=== PATIENT | male | born 1970 | race Caucasian/White ===

== ENCOUNTER 2021-10-28 02:06 | Day surgery (SDC) | payer OTHER, SELFPAY ==
[2021-10-28] VITALS (21 sets, daily range): BP systolic 117–188; BP diastolic 66–98; PULSE 42–95; RESP 15–24; TEMP 35.8–36.9; O2SAT 92–100; BMI 31.2; BMI 30.8
--- NOTE | 2021-10-28 02:20 | CRLHL7_ITS ---
For Patients: As a result of the Century Cures Act, medical imaging exams and procedure reports are released immediately into your electronic medical record. You may view this report before your referring provider. If you have questions, please contact your health care provider. INDICATION: Right upper quadrant pain. COMPARISON: 08/27/2021 TECHNIQUE: Ultrasound examination of the right upper quadrant was performed. FINDINGS: There is a nonmobile 1.8 centimeter diameter calculus in the neck of the gallbladder. This may be impacted. The gallbladder wall is top normal in thickness at 3 millimeters. A sonographic Randhawa sign is present with pain over the gallbladder during ultrasound examination. This does suggest acute cholecystitis. The common bile duct is mildly increased in caliber at 8 mm, new compared to the previous study where it measured 3 mm. The pancreatic head and body were examined, and these are normal in appearance. The abdominal aorta and IVC cannot be evaluated because of bowel gas. The liver shows no sign of mass or contour abnormality, and there is no sign of ascites. Again seen is increased hepatic echogenicity representing fatty infiltration. The right kidney is unremarkable. IMPRESSION: Findings suggesting acute cholecystitis. Large calculus impacted in the neck of the gallbladder. Positive sonographic Randhawa sign with gallbladder wall top-normal in thickness. New mild biliary ductal dilatation. Cannot exclude distal common bile duct obstruction. Suggest correlation with patient`s LFTs. Again seen is fatty infiltration of the liver. Dictated by Usama Burns MD @ 10/28/2021 3:33:50 AM (Electronically Signed)
[2021-10-28 02:31] LABS: Basophils Absolute Auto 0.04 K/uL (0.00-0.30); Basophils Percent Auto 0.4 % (0.0-3.0); Eosinophils Percent Auto 3.2 % (0.0-7.0); Hematocrit 43.5 % (37.0-53.0); Hemoglobin* 13.7 gm/dL (13.5-17.5); Immature Granulocytes Abs Auto 0.02 K/uL (0.00-0.30); Lymphocytes Absolute Auto 3.15 K/uL (0.90-2.90); Lymphocytes Percent Auto 33.7 % (20-44); Mean Corpuscular HGB Conc 32 gm/dL (32-36); Mean Corpuscular Hemoglobin 24 pg (26-34); Mean Corpuscular Volume 75 fL (80-100); Monocytes Percent Auto 8.5 % (0.0-11.0); Neutrophils Absolute Auto 5.05 K/uL (1.7-7.0); Platelet Count* 396 K/uL (140-440); RDW Coefficient of Variation % 23.8 % (11.5-15.5); Red Blood Count 5.84 m/uL (4.30-5.90); White Blood Count* 9.36 K/uL (4.50-11.00)
[2021-10-28 02:32] LABS: Slide Review Reflex No
[2021-10-28] MEDS: ONDANSETRON 2 MG/ML inj 4 MG IVP (02:32)
[2021-10-28] MEDS: MORPHINE 4 MG/ML INJ IVP (02:32)
[2021-10-28] MEDS: 0.9 % SODIUM CHLORIDE 1000 ml 1,000 ML IV (02:33)
[2021-10-28] MEDS: KETOROLAC 15 MG/ML inj IVP (02:34)
[2021-10-28 02:46] LABS: Albumin* 4.8 g/dL (3.3-5.0); Chloride* 105 mmol/L (96-114); Potassium* 3.6 mmol/L (3.6-5.1); Sodium* 143 mmol/L (135-149)
[2021-10-28 02:48] LABS: Amylase* 91 U/L (18-89); Carbon Dioxide* 22 mmol/L (20-32); Creatinine* 1.5 mg/dL (0.5-1.5); Est. Creatinine Clearance* 63.95; Estimated Glomerular Filt Rate 56 ml/min
[2021-10-28 02:49] LABS: Alkaline Phosphatase* 98 U/L (40-150); Aspartate Amino Transferase* 28 U/L (12-35); Bilirubin Total* 0.4 mg/dL (0.1-1.5); Blood Urea Nitrogen* 20 mg/dL (7-30); Calcium* 9.5 mg/dL (8.4-10.6); Glucose* 126 mg/dL (60-115); Lipase* 142 U/L (23-300); Total Protein* 8.5 g/dL (6.0-8.3)
[2021-10-28 02:50] LABS: Alanine Aminotransferase* 39 U/L (4-50)
--- NOTE | 2021-10-28 02:51 | ED.NURSE ---
Radiology in with patient for ultrasound.
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
[2021-10-28 03:16] LABS: Appearance Urine Clear (Clear); Bilirubin Urine Negative (Negative); Blood Urine Negative (Negative); Color Urine Yellow (Yellow); Glucose Urine Negative (Negative); Ketones Urine Negative (Negative); Leukocyte Esterase Urine Negative (Negative); Nitrite Urine Negative (Negative); Protein Urine Negative (Negative); Urobilinogen Urine 0.2 (0.2-1.0)
[2021-10-28] MEDS: HYDROmorphone 0.5 mg/0.5 ml inj IVP (03:53)
[2021-10-28 04:04] LABS: SARS PCR* Negative SARS-CoV-2 (Negative)
[2021-10-28] MEDS: PANTOPRAZOLE SODIUM 40 MG INJ 80 MG IVP (04:12)
[2021-10-28] MEDS: PIPERACILLIN/TAZOBACTAM 3.375 GM in 0.9 % SODIUM CHLORIDE Mini-bag 100 ML IVPB ×2 (04:58→14:05)
[2021-10-28] MEDS: 5 % DEXTROSE/0.9% SOD CHLORIDE 1,000 ML 125 ML IV (05:01)
--- NOTE | 2021-10-28 05:05 | P.IMPN_ITS ---
Subjective Date Seen: 10/28/21 Interval history: Jeison Momin Hospitalist eHospitalist was contacted with request of consultation on Rhett Brown for help wiht his admission. 51 year old gentleman with no significant PMH who presented to the hospital with severe abd pain, R sided, upper, started suddenly around 11 PM, progressively got worse, with no known exacerbating or relieving factors, radiating to upper back. pain was associated with nausea and vomiting but no fever. he described having some chills with this painful episode. Home medications: see EMR PMH: see EMR PSH: see EMR Social Hx: see EMR exam performed via interactive video with assistence of his bedside nurse; Ericka alert and cooperative, not in acute distress oral muocsa moist, no erythema CTAB, not tachypnic RRR, normal S1 S2+ 0 mild tenderness on RUQ when his nurse palpated, negative Randhawa's sign no LEs edema alert and oriented, no gross focal deficit no rash or lesions labs and imaging reviewed A/P: Cholelithiasis Biliary colic R/O acute cholecystitis no fever, leukocytosis to suggest ongoing infection although the presence of chills is concerning will keep on antibiotics; ceftriaxone and flagyl keep NPO IVF pain control antiemetics initial LFTs and lipase are normal, will trend pt will need to be seen by kemi for consideration for socorro de la fuente Thank you for including Jeison Momin hospitalist in Mr Brown's care. Please let us know if any questions or concerns. Exam Const: Vital Signs, click to edit/add: Vital Signs - 24 hr 10/28/21 02:10 10/28/21 03:10 10/28/21 04:00 Temperature 96.5 F L Pulse Rate [Pulse Oximeter] 67 66 63 Respiratory Rate 24 20 18 Blood Pressure [Ri ght Upper Arm] 188/98 H 173/95 H 145/67 H Pulse Oximetry 99 100 98 Oxygen Delivery Me thod Room Air Room Air Room Air Labs Labs: Laboratory Results - last 24 hr 10/28/21 10/28/21 10/28/21 02:20 02:20 03:00 WBC 9.36 RBC 5.84 Hgb 13.7 Hct 43.5 MCV 75 L MCH 24 L MCHC 32 RDW Coeff of Odin 23.8 H Plt Count 396 Neut % (Auto) 54.0 Lymph % (Auto) 33.7 [place] % (Auto) 8.5 Eos % (Auto) 3.2 Baso % (Auto) 0.4 Neut # (Auto) 5.05 Lymph # (Auto) 3.15 H [place] # (Auto) 0.80 Eos # (Auto) 0.30 Baso # (Auto) 0.04 Abs Immat Gran (auto) 0.02 Sodium 143 Potassium 3.6 Chloride 105 Carbon Dioxide 22 BUN 20 Creatinine 1.5 Estimated Creat Clear 63.95 Estimated GFR 56 Glucose 126 H Calcium 9.5 Total Bilirubin 0.4 AST 28 ALT 39 Alkaline Phosphatase 98 Total Protein 8.5 H Albumin 4.8 Amylase 91 H Lipase 142 Urine Color Yellow Urine Appearance Clear Urine pH 7.0 Ur Specific [place] 1.020 Urine Protein Negative Urine Glucose (UA) Negative Urine Ketones Negative Urine Blood Negative Urine Nitrite Negative Urine Bilirubin Negative Urine Urobilinogen 0.2 Ur Leukocyte Esterase Negative SARS-CoV-2 (PCR) 10/28/21 03:00 WBC RBC Hgb Hct MCV MCH MCHC RDW Coeff of Odin Plt Count Neut % (Auto) Lymph % (Auto) [place] % (Auto) Eos % (Auto) Baso % (Auto) Neut # (Auto) Lymph # (Auto) [place] # (Auto) Eos # (Auto) Baso # (Auto) Abs Immat Gran (auto) Sodium Potassium Chloride Carbon Dioxide BUN Creatinine Estimated Creat Clear Estimated GFR Glucose Calcium Total Bilirubin AST ALT Alkaline Phosphatase Total Protein Albumin Amylase Lipase Urine Color Urine Appearance Urine pH Ur Specific [place] Urine Protein Urine Glucose (UA) Urine Ketones Urine Blood Urine Nitrite Urine Bilirubin Urine Urobilinogen Ur Leukocyte Esterase SARS-CoV-2 (PCR) Negative SARS-CoV-2
--- NOTE | 2021-10-28 05:52 | PC.NURSE ---
Pt. up to floor approx. 0400, pt. alert and oriented x3, pleasant and cooperative. Pt. rates pain 06/03 received meds in ED prior to arrival see emar. Pt. denies N/V at this time resting comfortably in bed. NPO since 192910/27/21 per pt.
[2021-10-28] MEDS: OMEPRAZOLE 20 MG CAPSULE DR 40 MG PO (06:56)
[2021-10-28 07:54] LABS: Chloride* 109 mmol/L (96-114); Potassium* 4.4 mmol/L (3.6-5.1); Sodium* 139 mmol/L (135-149)
[2021-10-28 07:56] LABS: Bilirubin Total* 0.5 mg/dL (0.1-1.5); Creatinine* 1.4 mg/dL (0.5-1.5); Est. Creatinine Clearance* 68.52; Estimated Glomerular Filt Rate 61 ml/min
[2021-10-28 07:57] LABS: Alanine Aminotransferase* 33 U/L (4-50); Alkaline Phosphatase* 79 U/L (40-150); Aspartate Amino Transferase* 26 U/L (12-35); Blood Urea Nitrogen* 18 mg/dL (7-30); Carbon Dioxide* 22 mmol/L (20-32); Glucose* 142 mg/dL (60-115); Lipase* 75 U/L (23-300); Total Protein* 7.3 g/dL (6.0-8.3)
[2021-10-28 07:58] LABS: Calcium* 8.6 mg/dL (8.4-10.6)
[2021-10-28 08:01] LABS: Basophils Absolute Auto 0.03 K/uL (0.00-0.30); Basophils Percent Auto 0.3 % (0.0-3.0); Eosinophils Absolute Auto 0.07 K/uL (0.00-0.50); Eosinophils Percent Auto 0.7 % (0.0-7.0); Hematocrit 39.8 % (37.0-53.0); Hemoglobin* 12.6 gm/dL (13.5-17.5); Immature Granulocytes Abs Auto 0.07 K/uL (0.00-0.30); Immature Reticulocyte Fraction 13.4 % (2.3-13.4); Lymphocytes Percent Auto 17.3 % (20-44); Mean Corpuscular HGB Conc 32 gm/dL (32-36); Mean Corpuscular Hemoglobin 24 pg (26-34); Mean Corpuscular Volume 75 fL (80-100); Platelet Count* 358 K/uL (140-440); RDW Coefficient of Variation % 23.6 % (11.5-15.5); Red Blood Count 5.31 m/uL (4.30-5.90); Reticulocyte Hemoglobin Equivi 27.9 pg (29.0-35.0); Reticulocyte Percent 0.9 % (0.5-2.0); Reticulocytes Absolute 0.05 # (0.03-0.08)
[2021-10-28 08:04] LABS: Slide Review Reflex Yes
[2021-10-28 08:07] LABS: Slide Review Acceptable Review (Acceptable)
[2021-10-28 08:23] LABS: Iron* 36 ug/dL (49-181)
[2021-10-28 08:24] LABS: C Reactive Protein* 0.5 mg/dL (0.5-1.0)
[2021-10-28 08:32] LABS: Percent Iron Saturation 9 % (20-50); Total Iron Binding Capacity 386 ug/dL (261-462)
[2021-10-28] MEDS: ACETAMINOPHEN 325 MG TABLET PO (08:34)
[2021-10-28] MEDS: cefTRIAXone 2 GM in 0.9 % SODIUM CHLORIDE Mini-bag 100 ML IVPB (09:00)
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
[2021-10-28 13:50] LABS: Ferritin* 17.4 ng/mL (17.9-464.0)
[2021-10-28] MEDS: LACTATED RINGERS 1000 ML 1,000 ML 100 ML IV ×2 (13:55→15:12)
--- NOTE | 2021-10-28 16:09 | PM.GSPRC ---
Operative Note Date of procedure: 10/28/21 Type of Procedure: Laparoscopic cholecystectomy Procedure Description: After discussing the risks and benefits of the procedure, the patient signed informed consent.? The operative site was marked and the patient was brought to the operating room and placed on the operating table in supine position.? Care was taken to pad the patient's pressure points.?? The patient was then intubated by anesthesia.?? The operative site was then prepped and draped in the usual sterile fashion.? A time-out was then performed. Entrance to the abdomen was gained via a 5 mm Visiport in the left upper quadrant. The abdomen was insufflated and briefly surveyed for signs of injury. There was none. 11 mm umbilical port was placed as well as 2 working ports along the right costal margin. Patient was then placed in reverse Trendelenburg position with the right side up. The gallbladder fundus was distended and difficult to grasp. A laparoscopic needle was utilized to remove approximately 60 mL of bile and allow the fundus to be grasped and retracted cephalad. A moderate amount of dissection was needed to free omental adhesions from the gallbladder. The infundibulum was grasped. A combination of hook cautery and blunt dissection was used to carefully dissect out the cystic duct and artery until they could clearly be seen entering the gallbladder without any intervening structures. The gallbladder was dissected off the cystic plate to achieve the critical view. Once this was achieved the cystic duct and artery were each clipped with 2 clips proximally and 1 clip distally and transected with the scissors. There was a moderate-sized vein going into the gallbladder. Two clips were applied proximally on this and it was transected distally. The gallbladder was then taken off of the liver bed. And removed from the abdomen using an Endo-Catch bag. The gallbladder bed was surveyed for hemostasis. A small amount of bile which had spilled was suctioned from the abdomen the ports were then removed under direct vision. The umbilical port fascia was closed with 0 Vicryl. The skin was closed with absorbable subcuticular suture. Instrument sponge and needle counts were correct at the end of the case. The patient was then woken and transferred to the PACU in stable condition. ? The patient tolerated the procedure well. Findings: Inflamed gallbladder, consistent with acute cholecystitis. Anesthesia: GETA Surgeon: Laurie Reid MD Estimated blood loss (mL): 25 Condition: stable Disposition: PACU
--- NOTE | 2021-10-28 16:17 | W.ANESCHARGE ---
Anesthesia Charges Start Date/Time Anesthesia Start Date: 10/28/21 Anesthesia Start Time: 13:55 Stop Date/Time Anesthesia Stop Date: 10/28/21 Anesthesia Stop Time: 16:15 Summary Emergency: Yes
--- NOTE | 2021-10-28 16:26 | W.ANESCHARGE ---
Anesthesia Charges Start Date/Time Anesthesia Start Date: 10/28/21 Anesthesia Start Time: 13:55 Stop Date/Time Anesthesia Stop Date: 10/28/21 Anesthesia Stop Time: 16:15 Summary Emergency: Yes
--- NOTE | 2021-10-28 18:53 | PC.NURSE ---
Pt arrived to floor at 1645 - up to void in BR around 1800. no meds given since up to floor. spouse at bedside, d/c meds have already been picked up. pt steady on feet. slightly nauseated so only advanced to water thus far. 4 lap sites intact with glue. pain reported /. Report given to EMILY Hazel.
--- NOTE | 2021-10-28 19:39 | PC.NURSE ---
Discharge: Pt tolerating crackers, Voiding, Afebrile, Reporting zero pain and zero nausea. Ambulated with Spouse to the exit @ 1930
== END 2021-10-28 19:41 | disposition home or self-care (01) ==
LOC: ED 03:15 → MEDSURG 04:24 → SS 09:09 → MEDSURG 12:09
PROVIDERS: Internal Medicine; Student in an Organized Health Care Education/Training Program; Emergency Provider Family Medicine; PCP Family Medicine; Visit Provider Surgery
PROC: 0FT44ZZ Resection of Gallbladder, Percutaneous Endoscopic Approach (ICD-10-PCS; CPT 47562; principal; 2021-10-28 13:00)
DX: K80.12 Calculus of gallbladder with acute and chronic cholecystitis without obstruction (principal); K82.8 Other specified diseases of gallbladder; D50.9 Iron deficiency anemia, unspecified; Z86.718 Personal history of other venous thrombosis and embolism; K76.0 Fatty (change of) liver, not elsewhere classified
CPT/HCPCS: 47562; 00790; 36415; 76705; 80053; 81003; 82150; 82728; 83540; 83550; 83690; 85025; 85045; 86140; 87635; 88304; 93005; 99140; 99284; 99285; A9270; C9113; J0330; J0696; J1100; J1170; J1885; J2270; J2405; J2543; J2704; J2710; J2765; J3010; J7030; J7042; J7120

== ENCOUNTER 2024-09-05 09:24 | Outpatient (CLI) | payer BC, SELFPAY ==
--- NOTE | 2024-09-05 11:58 | W.ANESCHARGE ---
Anesthesia Charges Start Date/Time Anesthesia Start Date: 09/05/24 Anesthesia Start Time: 11:35 Stop Date/Time Anesthesia Stop Date: 09/05/24 Anesthesia Stop Time: 11:56 Coding CPT Codes CPT Codes: ANES LWR INTST SCR COLSC - 05938 ([id number]) P2 - PATIENT W/MILD SYST DISEASE
--- NOTE | 2024-09-05 12:17 | P.ANES_ITS ---
Anesthesia Charges Start Date/Time Anesthesia Start Date: 09/05/24 Anesthesia Start Time: 11:35 Stop Date/Time Anesthesia Stop Date: 09/05/24 Anesthesia Stop Time: 11:56 Coding CPT Codes CPT Codes: RUBI LWR INTST SCR COLSC - 09480 ([id number]) P2 - PATIENT W/MILD SYST DISEASE, QK - BICYCLE RACER 2-4 CNCRNT ANES PROC, QX - INFO PRINT PRESS OPERATOR SVC W/ MD MED DIRECTION
--- NOTE | 2024-09-05 12:17 | W.ANESCHARGE ---
Anesthesia Charges Start Date/Time Anesthesia Start Date: 09/05/24 Anesthesia Start Time: 11:35 Stop Date/Time Anesthesia Stop Date: 09/05/24 Anesthesia Stop Time: 11:56 Coding CPT Codes CPT Codes: RUBI LWR INTST SCR COLSC - 44191 ([id number]) P2 - PATIENT W/MILD SYST DISEASE, QK - TERRAZZO INSTALLER 2-4 CNCRNT ANES PROC, QX - BIODIESEL TECHNOLOGY MANAGER SVC W/ MD MED DIRECTION
== END 2024-09-05 09:25 | disposition home or self-care (01) ==
LOC: OP CLINIC 09:25
PROVIDERS: PCP Family Medicine; Visit Provider Surgery
DX: Z12.11 Encounter for screening for malignant neoplasm of colon (principal); D12.2 Benign neoplasm of ascending colon; Z86.0100 Personal history of colon polyps, unspecified; Z80.0 Family history of malignant neoplasm of digestive organs
CPT/HCPCS: 00812; 45385; 88305; J2704

== ENCOUNTER 2024-09-14 17:05 | Inpatient (IN) | payer BC, SELFPAY ==
[2024-09-14] VITALS (30 sets, daily range): BP systolic 119–145; BP diastolic 79–90; PULSE 84–104; RESP 14–28; TEMP 34.7–36.8; O2SAT 83–100; BMI 33.5
--- NOTE | 2024-09-14 17:22 | CRLHL7_ITS ---
For Patients: As a result of the Century Cures Act, medical imaging exams and procedure reports are released immediately into your electronic medical record. You may view this report before your referring provider. If you have questions, please contact your health care provider. INDICATION: Weak, shortness of breath, pale. TECHNIQUE: CT abdomen and pelvis acquired with 118 cc of Omnipaque 350 IV contrast. COMPARISON: Chest CT from earlier the same day. FINDINGS: Lower chest: Dictated separately. Liver: Unremarkable. Normal in size and attenuation. No suspicious masses. Gallbladder and bile ducts: Status post cholecystectomy. No abnormal biliary ductal dilatation. Pancreas: Unremarkable. No mass or inflammation. Spleen: Unremarkable. Normal in size. No masses. Adrenal glands: Unremarkable. No nodules. Kidneys: Unremarkable. No suspicious masses, stones, or hydronephrosis. GI tract: Small hiatal hernia. No obstruction. Normal appendix. Vasculature: Abdominal aorta is normal in caliber. Mesenteric arteries are patent. Heterogeneous and prominent appearance of the bilateral common and external iliac arteries, [id number]. Lymph nodes: No lymphadenopathy. Peritoneum/Abdominal Wall: Tiny fat-containing umbilical hernia. No free air or significant free fluid. Pelvis: Mild prostatomegaly. Prominent bilateral seminal vesicles. Bones: Unremarkable for age. IMPRESSION: 1. No acute findings within the abdomen and pelvis. 2. Heterogeneous and prominent appearance of the bilateral common and external iliac arteries, [id number]-right. Given the patient`s known pulmonary emboli, difficult to entirely exclude underlying deep venous thrombosis versus mixing artifact. Recommend dedicated DVT ultrasound for further evaluation. Please note that all CT scans at this facility use dose modulation, iterative reconstruction, and/or weight-based dosing when appropriate to reduce radiation dose to as low as reasonably achievable. Dictated by Ilir Contreras MD @ 09/14/2024 6:58:35 PM (Electronically Signed)
--- NOTE | 2024-09-14 17:22 | CRLHL7_ITS ---
For Patients: As a result of the 21st Century Cures Act, medical imaging exams and procedure reports are released immediately into your electronic medical record. You may view this report before your referring provider. If you have questions, please contact your health care provider. INDICATION: Weak shortness of breath TECHNIQUE: CT chest was acquired with 118 cc Omnipaque 350 IV contrast. Coronal and MIP reconstructions were performed. COMPARISON: None. FINDINGS: Lungs and pleura: Scattered few smaller nodules larger nodule measures 5 millimeters right lower lobe 4/152 for example. Heart and vasculature: Heart size is normal. Thoracic aorta and pulmonary artery are normal in caliber. Pulmonary extensive bilateral emboli in the main pulmonary arteries bilateral upper lower lobe right interlobar arteries. RV LV ratio measures approximately 1.3 reflecting right heart strain. Small pericardial effusion. Consolidation medial right middle lobe. Lymph nodes/mediastinum: No mediastinal, hilar, or axillary adenopathy. Chest wall: No masses. Upper abdomen: Cholecystectomy. Small hiatal hernia. Bones: Unremarkable for age. IMPRESSION: 1. Extensive bilateral pulmonary emboli in both main pulmonary arteries upper and lower lobe arteries. Large clot burden. Findings of right Heart strain with RV/ LV ratio measuring 1.3 centimeters. Small pericardial effusion. 2. Consolidation medial right middle lobe. 3. Scattered small pulmonary nodules measuring up to 5 millimeters follow-up per Fleischner society guidelines. Results called to Dr. Haines on 09/14/24 at 6:44pm. F[employer]CH[employer] SOCIETY GUIDELINES - SOLID NODULES: SINGLE LOW RISK - nodule less than 6 mm: No routine follow-up. - nodule 6-8 mm: CT at 6-12 months, then consider CT at 18-24 months. - nodule greater than 8 mm: Consider CT at 3 months, PET/CT or tissue sampling. SINGLE HIGH RISK - nodule less than 6 mm: Optional CT at 12 months. - nodule 6-8 mm: CT at 6-12 months, then CT at 18-24 months. - nodule greater than 8 mm: Consider CT at 3 months, PET/CT or tissue sampling. MULTIPLE LOW RISK - nodule less than 6 mm: No routine follow-up. - nodule 6-8 mm: CT at 3-6 months, then consider CT at 18-24 months. - nodule greater than 8 mm: CT at 3-6 months, then consider CT at 18-24 months. MULTIPLE HIGH RISK - nodule less than 6 mm: Optional CT at 12 months. - nodule 6-8 mm: CT at 3-6 months, then at 18-24 months. - nodule greater than 8 mm: CT at 3-6 months, then at 18-24 months. Please note that all CT scans at this facility use dose modulation, iterative reconstruction, and/or weight-based dosing when appropriate to reduce radiation dose to as low as reasonably achievable. Dictated by Deepti Shelton MD @ 09/14/2024 6:45:03 PM (Electronically Signed)
[2024-09-14 17:32] LABS: Troponin, Point-of-Care* 0.04 ng/ml (0.01-0.04)
[2024-09-14 17:40] LABS: HCO3 VBG 20 mmol/L (21-28); PCO2 VBG 36 mmHG (40-50); PO2 VBG < 30.1 mmHG (25-47); pH VBG 7.347 (7.32-7.43)
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
[2024-09-14 18:01] LABS: Albumin* 4.7 g/dL (3.3-5.0); Chloride* 104 mmol/L (96-114); Sodium* 138 mmol/L (135-149)
[2024-09-14 18:03] LABS: Blood Urea Nitrogen* 18 mg/dL (7-30); Creatinine* 1.9 mg/dL (0.5-1.5); Est. Creatinine Clearance* 47.34; Estimated Glomerular Filt Rate 41 ml/min
[2024-09-14 18:04] LABS: Alanine Aminotransferase* 89 U/L (4-50); Alkaline Phosphatase* 142 U/L (40-150); Anion Gap 16 mEq/L (7-15); Aspartate Amino Transferase* 56 U/L (12-35); Bilirubin Direct* 0.2 mg/dL (0.0-0.5); Bilirubin Total* 1.4 mg/dL (0.1-1.5); Calcium* 9.6 mg/dL (8.4-10.6); Carbon Dioxide* 18 mmol/L (20-32); Glucose* 173 mg/dL (60-115); Lipase* 75 U/L (23-300); Total Protein* 8.6 g/dL (6.0-8.3)
[2024-09-14 18:05] LABS: Magnesium* 2.2 mg/dL (1.5-2.6)
[2024-09-14 18:07] LABS: C Reactive Protein* 4.1 mg/dL (0.5-1.0)
[2024-09-14 18:12] LABS: Basophils Percent Auto 0.5 % (0.0-3.0); Hematocrit 37.2 % (37.0-53.0); Hemoglobin* 10.9 gm/dL (13.5-17.5); Immature Granulocytes Pct Auto 0.3 %; Lymphocytes Percent Auto 30.1 % (20-44); Mean Corpuscular HGB Conc 29 gm/dL (32-36); Mean Corpuscular Hemoglobin 20 pg (26-34); Mean Corpuscular Volume 67 fL (80-100); Monocytes Percent Auto 10.5 % (0.0-11.0); Neutrophils Percent Auto 57.6 % (42.0-72.0); Platelet Count* 392 K/uL (140-440); RDW Coefficient of Variation % 19.2 % (11.5-15.5); Red Blood Count 5.57 m/uL (4.30-5.90); Slide Review Reflex No; White Blood Count* 11.17 K/uL (4.50-11.00)
[2024-09-14 18:21] LABS: Procalcitonin* 0.09 ng/mL (<0.50)
[2024-09-14 18:25] LABS: INR 1.05 (0.91-1.10); Prothrombin Time 14.5 Seconds
[2024-09-14] MEDS: HEPARIN 5,000 UNIT/0.5 ML INJ 8700 UNIT IVP (19:21)
[2024-09-14] MEDS: HEPARIN 25,000 UNIT/500 ML BAG 30 UNIT IV (19:24)
[2024-09-14 19:36] LABS: NT Pro B Type NatriureticPept* 3220 pg/mL (See Note)
[2024-09-14 19:37] LABS: Partial Thromboplastin Time* 24 Seconds (23-33)
[2024-09-14 21:39] LABS: Appearance Urine Clear (Clear); Bilirubin Urine Negative (Negative); Blood Urine Negative (Negative); Color Urine Yellow (Yellow); Glucose Urine Negative (Negative); Ketones Urine 1+ (Negative); Leukocyte Esterase Urine Negative (Negative); Nitrite Urine Negative (Negative); Protein Urine 1+ (Negative); Urobilinogen Urine 0.2 (0.2-1.0); pH Urine 5.5 (5.0-8.5)
[2024-09-14 21:56] LABS: Mucus Urine Moderate; RBC Urine 0-2 (0-2); WBC Urine 0-2 (0-5)
[2024-09-14] MEDS: OMEPRAZOLE 20 MG CAPSULE DR PO (22:08)
[2024-09-14 22:35] LABS: Magnesium* 2.2 mg/dL (1.5-2.6)
--- NOTE | 2024-09-14 23:58 | PM.IMHP1 ---
Assessment and Plan Assessment and plan (1) Pulmonary embolism: Problem comment: Large clot burden with multiple bilateral pulmonary emboli. Right heart strain, hypoxia, tachycardia. ER physician discussed with fan blade aligner at [facility]. They recommended management with IV heparin and transfer if clinical deterioration. Status: Acute Plan Patient is admitted to the CCU for close monitoring and management of submassive PE. Initiate IV heparin until clinical improvement and then switched to apixaban. If clinical deterioration consider transfer to ICU care at [facility]. Total Time Spent Total Time Spent: Total time spent today is 65 minutes in critical care evaluation and management, discussing with patient and other providers ongoing plan of care. Hospitalist- H&P: HPI History of Present Illness Date Seen: 09/14/24 Chief complaint: Shortness of breath, fatigue Narrative: Rhett Brown is a 54 year old male admitted to the hospital with onset 2 days ago of profound fatigue, dyspnea and generalized aching. 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 He reports this was fairly severe physical exertion and he was exhausted when he was done. Unfortunately he did not recover well and reported having generalized pains and profound dyspnea with ordinary activity the rest of the day. He had some stomach pain and tried to eat but that did not help. That has subsequently resolved. He did not have any leg pain. He does report that he has developed chest pain that comes when he coughs but otherwise no chest pain. In the emergency department he was found to have multiple bilateral pulmonary emboli with large clot burden and right heart strain with an RV to LV ratio of 1.3. He does have a previous history of a DVT perhaps 8 or 9 years ago. It was in his calf. He was treated with warfarin and then that was discontinued. That may or may not have been a provoked event. 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 No other personal or family history of thrombophilia. He does not smoke. He has not had any recent immobilization or significant injury. He has not had any prolonged travel. He takes no medications. No history of cancer. He had colonoscopy last week for screening purposes. One 6 mm pre cancerous polyp was removed by cold forceps. He has had no bleeding from that. No other history of bleeding problems. Review of Systems Narrative: He reports feeling well other than as above. Medical Decision Making Medical Decision Making Code Status: Full Has patient completed a Health Care Directive: No During This Stay, Who Would You Like To Make Decisions For You In The Event You Are Unable To Make Them For Yourself?: PFSH PFSGerda Medical History (Updated 09/15/24 @ 00:12 by Daquan Rivera MD) Pulmonary nodules ?R91.8 - Other nonspecific abnormal finding of lung field (ICD-10) GERD (gastroesophageal reflux disease) ?K21.9 - Gastro-esophageal reflux disease without esophagitis (ICD-10) Epigastric pain ?R10.13 - Epigastric pain (ICD-10) Acute cholecystitis due to biliary calculus ?K80.00 - Calculus of gallbladder with acute cholecystitis without obstruction (ICD-10) Hepatic steatosis ?K76.0 - Fatty (change of) liver, not elsewhere classified (ICD-10) Obstruction of esophagus due to food impaction ?K22.2 - Esophageal obstruction (ICD-10) ?T18.128A - Food in esophagus causing other injury, initial encounter (ICD-10) Microcytic anemia ?D50.9 - Iron deficiency anemia, unspecified (ICD-10) Deep vein thrombosis (DVT) ?I82.409 - Acute embolism and thrombosis of unspecified deep veins of unspecified lower extremity (ICD-10) Cholelithiasis ?K80.20 - Calculus of gallbladder without cholecystitis without obstruction (ICD-10) Anemia ?D64.9 - Anemia, unspecified (ICD-10) Surgical History History of cholecystectomy ?Z90.49 - Acquired absence of other specified parts of digestive tract (ICD-10) History of endoscopy ?Z98.890 - Other specified postprocedural states (ICD-10) Family History Uncle Coronary artery disease Family/Other Coronary artery disease Mother Stroke Diabetes Social History (Updated 09/15/24 @ 00:07 by Daquan Rivera MD) Narrative: Social: . Two children ages 8 and 10. 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 Lives in [place]. Involved in sword fighting. Habits: No tobacco or recreational drug use. Alcohol use is 1-2 drinks per week. 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 Code status is full. What is your current living situation?: I presently have a place to live Problems where you live: no known problems Problems where you live details: NA In the past 12 months, utilities in danger of being shut off: no In past 12 months, lack of transportation kept you from medical appts, meetings, work, or getting things needed for daily living: no In the past 12 mos, have been you worried that your food would run out before you had money to buy more?: never true In the past 12 mos, the food you bought just didn't last and you didn't have money to buy more?: never true Highest level of school completed/degree received: Master's degree Smoking Status: Never smoker Second hand tobacco smoke exposure: No How often do you have a drink containing alcohol: 2-4 times a month How many standard drinks containing alcohol do you have on a typical day: 1 or 2 How often do you have six or more drinks on one occasion: Never AUDIT-C Alcohol total score: 2 Non-prescribed substance use: denies use Caffeine: No How often does anyone, including family, friends and others, physically hurt you: never How often does anyone, including family, friends and others, insult or talk down to you: never How often does anyone, including family, friends and others, threaten you with harm: never How often does anyone, including family, friends and others, scream or curse at you: never service: No Meds Home Medications and Allergies Home Medications ?Medication ?Instructions ?Recorded ?Confirmed ?Type No Known Home Medications 09/14/24 09/14/24 History Home Medication Comments: None Allergies Allergy/AdvReac Type Severity Reaction Status Date / Time hayfever Allergy Mild scratchy Uncoded 07/29/24 08:50 throat Grass Allergy Unknown hayfever Uncoded 07/29/24 08:50 Exam Narrative: Exam Narrative: He is alert and appears in no distress. He is breathing comfortably on supplemental oxygen. He is oriented to his circumstances and gives his own history. Oropharynx is normal. Neck is supple without mass or adenopathy. No jugular venous distension. Respirations are clear to auscultation. No wheezing rales rhonchi. No consolidation. Cardiovascular: S1, S2, regular rate and rhythm. No murmur gallop or rub. Abdomen: Bowel sounds active. Abdomen is soft without tenderness or mass. Extremities are normal. He has no significant edema no tenderness no erythema he moves all 4 extremities well. No rash. Const: Vital Signs, click to edit/add: Vital Signs - 24 hr 09/14/24 17:15 09/14/24 17:16 09/14/24 17:16 Temperature 94.4 F L Pulse Rate 100 101 H Pulse Rate [Pulse Oximeter] 104 H Respiratory Rate 24 23 Blood Pressure 123/79 Blood Pressure [Le ft Arm] Blood Pressure [Ri ght Upper Arm] 119/81 Pulse Oximetry 90 83 L 93 Oxygen Delivery Me thod Room Air Oxygen Flow Rate 09/14/24 17:29 09/14/24 17:30 09/14/24 17:31 Temperature Pulse Rate 97 97 Pulse Rate [Pulse Oximeter] Respiratory Rate 17 21 Blood Pressure 125/80 Blood Pressure [Le ft Arm] Blood Pressure [Ri ght Upper Arm] Pulse Oximetry 97 95 96 Oxygen Delivery Me thod Oxygen Flow Rate 09/14/24 17:45 09/14/24 17:49 09/14/24 17:50 Temperature 97.5 F L Pulse Rate 94 94 95 Pulse Rate [Pulse Oximeter] Respiratory Rate 22 18 19 Blood Pressure Blood Pressure [Le ft Arm] Blood Pressure [Ri ght Upper Arm] Pulse Oximetry 97 97 98 Oxygen Delivery Me thod Oxygen Flow Rate 09/14/24 18:14 09/14/24 18:15 09/14/24 18:16 Temperature Pulse Rate 94 94 Pulse Rate [Pulse Oximeter] Respiratory Rate 23 20 23 Blood Pressure 145/87 H Blood Pressure [Le ft Arm] Blood Pressure [Ri ght Upper Arm] Pulse Oximetry 96 96 Oxygen Delivery Me thod Nasal Cannula Oxygen Flow Rate 3 09/14/24 18:17 09/14/24 18:30 09/14/24 18:31 Temperature Pulse Rate 95 95 94 Pulse Rate [Pulse Oximeter] Respiratory Rate 18 14 19 Blood Pressure 136/84 127/82 Blood Pressure [Le ft Arm] Blood Pressure [Ri ght Upper Arm] Pulse Oximetry 95 98 98 Oxygen Delivery Me thod Oxygen Flow Rate 09/14/24 18:32 09/14/24 18:45 09/14/24 18:46 Temperature Pulse Rate 93 90 89 Pulse Rate [Pulse Oximeter] Respiratory Rate 28 H 23 21 Blood Pressure 134/85 Blood Pressure [Le ft Arm] Blood Pressure [Ri ght Upper Arm] Pulse Oximetry 98 99 99 Oxygen Delivery Me thod Oxygen Flow Rate 09/14/24 19:00 09/14/24 19:01 09/14/24 19:15 Temperature Pulse Rate 89 89 91 Pulse Rate [Pulse Oximeter] Respiratory Rate 19 23 22 Blood Pressure 121/83 Blood Pressure [Le ft Arm] Blood Pressure [Ri ght Upper Arm] Pulse Oximetry 99 99 98 Oxygen Delivery Me thod Nasal Cannula Oxygen Flow Rate 3 09/14/24 19:16 09/14/24 19:30 09/14/24 19:31 Temperature Pulse Rate 89 89 88 Pulse Rate [Pulse Oximeter] Respiratory Rate 24 15 23 Blood Pressure 133/90 H 127/85 Blood Pressure [Le ft Arm] Blood Pressure [Ri ght Upper Arm] Pulse Oximetry 97 97 100 Oxygen Delivery Me thod Oxygen Flow Rate 09/14/24 19:55 09/14/24 20:48 09/14/24 21:41 Temperature 98.3 F Pulse Rate 92 Pulse Rate [Pulse Oximeter] 90 Respiratory Rate 26 H 26 H Blood Pressure Blood Pressure [Le ft Arm] 138/86 Blood Pressure [Ri ght Upper Arm] Pulse Oximetry 97 97 Oxygen Delivery Me thod Nasal Cannula Nasal Cannula Oxygen Flow Rate 3 3 09/14/24 22:05 09/14/24 23:00 09/14/24 23:53 Temperature 97.7 F 97.7 F Pulse Rate 90 Pulse Rate [Pulse Oximeter] 84 84 Respiratory Rate 16 20 Blood Pressure Blood Pressure [Le ft Arm] 133/84 138/86 Blood Pressure [Ri ght Upper Arm] Pulse Oximetry 95 97 Oxygen Delivery Me thod Nasal Cannula Nasal Cannula Oxygen Flow Rate 3 3 Documenting provider has reviewed patient's vital signs: yes Hospitalist - H&P: Result Labs Labs: Short CBC 09/14/24 Range/Units 17:19 WBC 11.17 H (4.50-11.00) K/uL Hgb 10.9 L (13.5-17.5) gm/dL Hct 37.2 (37.0-53.0) % Plt Count 392 (140-440) K/uL BMP 09/14/24 17:19 Sodium 138 Potassium 4.0 Chloride 104 Carbon Dioxide 18 L BUN 18 Creatinine 1.9 H Glucose 173 H Calcium 9.6 Liver Function 09/14/24 Range/Units 17:19 Total Bilirubin 1.4 (0.1-1.5) mg/dL Direct Bilirubin 0.2 (0.0-0.5) mg/dL AST 56 H (12-35) U/L ALT 89 H (4-50) U/L Alkaline Phosphatase 142 (40-150) U/L Albumin 4.7 (3.3-5.0) g/dL Urine 09/14/24 Range/Units 20:16 Urine Color Yellow (Yellow) Urine Appearance Clear (Clear) Urine pH 5.5 (5.0-8.5) Ur Specific [place] 1.010 (1.000-1.030) Urine Protein 1+ A (Negative) Urine Glucose (UA) Negative (Negative) ECG Attestation: I personally reviewed and interpreted this ECG as follows: (Sinus tachycardia with a pulse of 104, nonspecific ST-T changes,) Imaging CT scan - chest: Radiologist's impression: INDICATION: Weak shortness of breath TECHNIQUE: CT chest was acquired with 118 cc Omnipaque 350 IV contrast. Coronal and MIP reconstructions were performed. COMPARISON: None. FINDINGS: Lungs and pleura: Scattered few smaller nodules larger nodule measures 5 millimeters right lower lobe 4/152 for example. Heart and vasculature: Heart size is normal. Thoracic aorta and pulmonary artery are normal in caliber. Pulmonary extensive bilateral emboli in the main pulmonary arteries bilateral upper lower lobe right interlobar arteries. RV LV ratio measures approximately 1.3 reflecting right heart strain. Small pericardial effusion. Consolidation medial right middle lobe. Lymph nodes/mediastinum: No mediastinal, hilar, or axillary adenopathy. Chest wall: No masses. Upper abdomen: Cholecystectomy. Small hiatal hernia. Bones: Unremarkable for age. IMPRESSION: 1. Extensive bilateral pulmonary emboli in both main pulmonary arteries upper and lower lobe arteries. Large clot burden. Findings of right Heart strain with RV/ LV ratio measuring 1.3 centimeters. Small pericardial effusion. 2. Consolidation medial right middle lobe. 3. Scattered small pulmonary nodules measuring up to 5 millimeters follow-up per Fleischner society guidelines. Results called to Dr. Haines on 09/14/24 at 6:44pm. FLEISCHNER SOCIETY GUIDELINES - SOLID NODULES: SINGLE LOW RISK - nodule less than 6 mm: No routine follow-up. - nodule 6-8 mm: CT at 6-12 months, then consider CT at 18-24 months. - nodule greater than 8 mm: Consider CT at 3 months, PET/CT or tissue sampling. SINGLE HIGH RISK - nodule less than 6 mm: Optional CT at 12 months. - nodule 6-8 mm: CT at 6-12 months, then CT at 18-24 months. - nodule greater than 8 mm: Consider CT at 3 months, PET/CT or tissue sampling. MULTIPLE LOW RISK - nodule less than 6 mm: No routine follow-up. - nodule 6-8 mm: CT at 3-6 months, then consider CT at 18-24 months. - nodule greater than 8 mm: CT at 3-6 months, then consider CT at 18-24 months. MULTIPLE HIGH RISK - nodule less than 6 mm: Optional CT at 12 months. - nodule 6-8 mm: CT at 3-6 months, then at 18-24 months. - nodule greater than 8 mm: CT at 3-6 months, then at 18-24 months.
[2024-09-15] VITALS (18 sets, daily range): BP systolic 122–152; BP diastolic 73–93; PULSE 75–126; RESP 16–22; TEMP 36.2–37; O2SAT 91–97
[2024-09-15 01:56] LABS: Partial Thromboplastin Time* 24 Seconds (23-33)
[2024-09-15] MEDS: HEPARIN 5,000 UNIT/0.5 ML INJ 6500 UNIT IVP (02:30)
[2024-09-15 06:33] LABS: Lactate* 1.2 mmol/L (0.5-1.9)
[2024-09-15] MEDS: OMEPRAZOLE 20 MG CAPSULE DR PO (06:36)
[2024-09-15 06:39] LABS: Basophils Percent Auto 0.4 % (0.0-3.0); Eosinophils Percent Auto 2.1 % (0.0-7.0); Hematocrit 33.1 % (37.0-53.0); Hemoglobin* 9.7 gm/dL (13.5-17.5); Immature Granulocytes Pct Auto 0.4 %; Lymphocytes Percent Auto 27.9 % (20-44); Mean Corpuscular HGB Conc 29 gm/dL (32-36); Mean Corpuscular Hemoglobin 19 pg (26-34); Mean Corpuscular Volume 66 fL (80-100); Monocytes Percent Auto 10.1 % (0.0-11.0); Neutrophils Percent Auto 59.1 % (42.0-72.0); Platelet Count* 280 K/uL (140-440); RDW Coefficient of Variation % 18.4 % (11.5-15.5); Red Blood Count 5.02 m/uL (4.30-5.90); White Blood Count* 11.35 K/uL (4.50-11.00)
--- NOTE | 2024-09-15 06:42 | PC.NURSE ---
Pt alert and oriented. Pt pleasant and cooperative. Pt had no complaints of pain. Pt has SOB with exertion. Pt?s VSS on 3 Liters oxygen. Pt is up with SBA. Pt is on a heaprin drip; see EMAR. Next PTT draw at 0830.? ?
[2024-09-15 06:46] LABS: Slide Review Reflex No
[2024-09-15 07:39] LABS: Chloride* 107 mmol/L (96-114)
[2024-09-15 07:40] LABS: Potassium* 4.3 mmol/L (3.6-5.1); Sodium* 137 mmol/L (135-149)
[2024-09-15 07:42] LABS: Blood Urea Nitrogen* 18 mg/dL (7-30); Creatinine* 1.6 mg/dL (0.5-1.5); Est. Creatinine Clearance* 56.21; Estimated Glomerular Filt Rate 51 ml/min
[2024-09-15 07:43] LABS: Alanine Aminotransferase* 66 U/L (4-50); Alkaline Phosphatase* 125 U/L (40-150); Anion Gap 10 mEq/L (7-15); Aspartate Amino Transferase* 35 U/L (12-35); Bilirubin Direct* 0.2 mg/dL (0.0-0.5); Calcium* 8.8 mg/dL (8.4-10.6); Carbon Dioxide* 20 mmol/L (20-32); Glucose* 107 mg/dL (60-115); Total Protein* 7.3 g/dL (6.0-8.3)
[2024-09-15 07:46] LABS: C Reactive Protein* 4.2 mg/dL (0.5-1.0)
--- NOTE | 2024-09-15 08:00 | CRLHL7_ITS ---
For Patients: As a result of the Century Cures Act, medical imaging exams and procedure reports are released immediately into your electronic medical record. You may view this report before your referring provider. If you have questions, please contact your health care provider. INDICATION: Pulmonary embolism TECHNIQUE: Ultrasound venous duplex bilateral lower extremity. Compression venous exam was performed using vo-scale, color Doppler, and spectral Doppler analysis. COMPARISON: None. FINDINGS: RIGHT: Deep veins: Eccentric thrombus throughout the popliteal vein extending to the mid posterior tibial and peroneal veins. These veins are partially compressible. Sonographic imaging demonstrates the right common femoral, deep femoral, superficial femoral veins to be fully compressible with normal color Doppler blood flow. Superficial veins: Greater saphenous vein is fully compressible. LEFT: Deep veins: Sonographic imaging demonstrates the left common femoral, deep femoral, superficial femoral, popliteal, posterior tibial and peroneal veins to be fully compressible with normal color Doppler blood flow. Superficial veins: Proximal greater saphenous vein is fully compressible. IMPRESSION: Nonocclusive thrombus extending from the right popliteal vein to mid posterior tibial and peroneal veins. Results communicated to [place] by Dre on 09/15/24 at 8:56 a.m.. Dictated by Angie Erickson MD @ 09/15/2024 8:57:01 AM (Electronically Signed)
[2024-09-15 08:15] LABS: Troponin I* 0.08 ng/mL (0.01-0.04)
[2024-09-15 08:23] LABS: Hemoglobin A1C* 5.9 % (0-5.6)
[2024-09-15 09:09] LABS: Partial Thromboplastin Time* 122 Seconds (23-33)
[2024-09-15] MEDS: SODIUM CHLORIDE 0.9 % (FLUSH) 10 ML SYRINGE 5 ML IVF ×2 (09:25→21:27)
[2024-09-15] MEDS: HEPARIN 25,000 UNIT/500 ML BAG 33 UNIT IV (10:10)
[2024-09-15 10:32] LABS: Troponin I* 0.07 ng/mL (0.01-0.04)
--- NOTE | 2024-09-15 15:48 | PM.IMPN1 ---
Assessment and Plan Assessment and plan (1) Pulmonary embolism: Problem comment: Large clot burden with multiple bilateral pulmonary emboli. Right heart strain, hypoxia, tachycardia. ER physician discussed with administrative support assistant at [facility]. They recommended management with IV heparin and transfer if clinical deterioration. - 09/15 R heart strain on ECHO, symptoms improving, vitals stable at rest, expected HR elevation with ambulation to BR. Keep on IV heparin overnight, repeat Hgb in am, will probably transition to DOAC tomorrow Status: Acute (2) Pulmonary nodules: Problem comment: Chest CT on 09/15/2024 shows multiple pulmonary nodules less than 6 mm in size. Patient is a nonsmoker, no further workup needed Status: Acute (3) Hepatic steatosis: Problem comment: Previously seen on imaging in 2021. AST and ALT mildly elevated on admission, improving, recommended lifestyle changes. Status: Chronic (4) Prediabetes: Problem comment: Elevated glucose on admission, hemoglobin A1c today is 5.9%. Recommended lifestyle changes and follow-up with primary care provider. Status: Acute (5) Chronic kidney disease: Status: Acute (6) Anemia: Problem comment: Present on admission. In at colonoscopy 09/05/2024 with sessile polyp 6 mm in the ascending colon removed by cold snare. EGD 3 years ago. Patient has history of GERD. Was started on omeprazole on admission. No evidence of active bleeding. Continue IV heparin rather than switching to oral DOAC tonight Recheck hemoglobin in the morning. Status: Acute Total Time Spent Total Time Spent: Today I spent 50minutes seeing the patient on 2 occasions today, conversation with the patient and his this morning, conversation with the patient and his friends this afternoon, reviewing [facility] and [facility] notes/diagnostics/labs, discussing the care plan with our care team that includes social work, PT/OT, pharmacy, RT, shelter and documenting my impressions and plan in the medical record. Subjective Time Seen by Provider: 07:40 Date Seen: 09/15/24 Interval history: Rhett is overall feeling better, but does still have dyspnea when getting up to use the bathroom. Nurse reports that his heart rate goes into the 120s with ambulation to the bathroom, but resolves when he lays back down. His , Anai, was in the room this morning and had questions about his oxygen levels, high blood sugars, pulmonary nodules, and fatty liver. I discussed these things with her and answered her questions. Went back later in the day dizzy Rhett in give him results of the echo. He had 2 friends in the room and wanted me to talk in front of them, which I did. All questions answered. Exam Narrative: Exam Narrative: General: No acute distress. Laying comfortably in the bed. Awake, alert, oriented x3. No pallor. No jaundice. Oropharynx: Clear. Mucous membranes moist. Cardiovascular: Regular rate and rhythm. No murmurs, gallops, or rubs. Respiratory: No respiratory distress. No increased work of breathing. Clear to auscultation bilaterally. No wheezes or crackles. Abdomen: Bowel sounds present. Soft, nondistended, nontender. Extremities: No lower extremity edema. Const: Vital Signs, click to edit/add: Vital Signs - 24 hr 09/14/24 17:15 09/14/24 17:16 09/14/24 17:16 Temperature 94.4 F L Pulse Rate 100 101 H Pulse Rate [Pulse Oximeter] 104 H Respiratory Rate 24 23 Blood Pressure 123/79 Blood Pressure [Le ft Arm] Blood Pressure [Ri ght Upper Arm] 119/81 Pulse Oximetry 90 83 L 93 Oxygen Delivery Me thod Room Air Oxygen Flow Rate 09/14/24 17:29 09/14/24 17:30 09/14/24 17:31 Temperature Pulse Rate 97 97 Pulse Rate [Pulse Oximeter] Respiratory Rate 17 21 Blood Pressure 125/80 Blood Pressure [Le ft Arm] Blood Pressure [Ri ght Upper Arm] Pulse Oximetry 97 95 96 Oxygen Delivery Me thod Oxygen Flow Rate 09/14/24 17:45 09/14/24 17:49 09/14/24 17:50 Temperature 97.5 F L Pulse Rate 94 94 95 Pulse Rate [Pulse Oximeter] Respiratory Rate 22 18 19 Blood Pressure Blood Pressure [Le ft Arm] Blood Pressure [Ri ght Upper Arm] Pulse Oximetry 97 97 98 Oxygen Delivery Me thod Oxygen Flow Rate 09/14/24 18:14 09/14/24 18:15 09/14/24 18:16 Temperature Pulse Rate 94 94 Pulse Rate [Pulse Oximeter] Respiratory Rate 23 20 23 Blood Pressure 145/87 H Blood Pressure [Le ft Arm] Blood Pressure [Ri ght Upper Arm] Pulse Oximetry 96 96 Oxygen Delivery Me thod Nasal Cannula Oxygen Flow Rate 3 09/14/24 18:17 09/14/24 18:30 09/14/24 18:31 Temperature Pulse Rate 95 95 94 Pulse Rate [Pulse Oximeter] Respiratory Rate 18 14 19 Blood Pressure 136/84 127/82 Blood Pressure [Le ft Arm] Blood Pressure [Ri ght Upper Arm] Pulse Oximetry 95 98 98 Oxygen Delivery Me thod Oxygen Flow Rate 09/14/24 18:32 09/14/24 18:45 09/14/24 18:46 Temperature Pulse Rate 93 90 89 Pulse Rate [Pulse Oximeter] Respiratory Rate 28 H 23 21 Blood Pressure 134/85 Blood Pressure [Le ft Arm] Blood Pressure [Ri ght Upper Arm] Pulse Oximetry 98 99 99 Oxygen Delivery Me thod Oxygen Flow Rate 09/14/24 19:00 09/14/24 19:01 09/14/24 19:15 Temperature Pulse Rate 89 89 91 Pulse Rate [Pulse Oximeter] Respiratory Rate 19 23 22 Blood Pressure 121/83 Blood Pressure [Le ft Arm] Blood Pressure [Ri ght Upper Arm] Pulse Oximetry 99 99 98 Oxygen Delivery Me thod Nasal Cannula Oxygen Flow Rate 3 09/14/24 19:16 09/14/24 19:30 09/14/24 19:31 Temperature Pulse Rate 89 89 88 Pulse Rate [Pulse Oximeter] Respiratory Rate 24 15 23 Blood Pressure 133/90 H 127/85 Blood Pressure [Le ft Arm] Blood Pressure [Ri ght Upper Arm] Pulse Oximetry 97 97 100 Oxygen Delivery Me thod Oxygen Flow Rate 09/14/24 19:55 09/14/24 20:48 09/14/24 21:41 Temperature 98.3 F Pulse Rate 92 Pulse Rate [Pulse Oximeter] 90 Respiratory Rate 26 H 26 H Blood Pressure Blood Pressure [Le ft Arm] 138/86 Blood Pressure [Ri ght Upper Arm] Pulse Oximetry 97 97 Oxygen Delivery Me thod Nasal Cannula Nasal Cannula Oxygen Flow Rate 3 3 09/14/24 22:05 09/14/24 23:00 09/14/24 23:53 Temperature 97.7 F 97.7 F Pulse Rate 90 Pulse Rate [Pulse Oximeter] 84 84 Respiratory Rate 16 20 Blood Pressure Blood Pressure [Le ft Arm] 133/84 138/86 Blood Pressure [Ri ght Upper Arm] Pulse Oximetry 95 97 Oxygen Delivery Me thod Nasal Cannula Nasal Cannula Oxygen Flow Rate 3 3 09/14/24 23:58 09/15/24 01:36 09/15/24 03:05 Temperature 97.6 F Pulse Rate 75 Pulse Rate [Pulse Oximeter] 85 Respiratory Rate 16 22 Blood Pressure Blood Pressure [Le ft Arm] 122/75 Blood Pressure [Ri ght Upper Arm] Pulse Oximetry 97 Oxygen Delivery Me thod Nasal Cannula Oxygen Flow Rate 3 09/15/24 04:19 09/15/24 04:25 09/15/24 06:19 Temperature 97.5 F L 97.7 F Pulse Rate Pulse Rate [Pulse Oximeter] 86 98 Respiratory Rate 16 16 16 Blood Pressure Blood Pressure [Le ft Arm] 127/73 128/77 Blood Pressure [Ri ght Upper Arm] Pulse Oximetry 97 97 Oxygen Delivery Me thod Nasal Cannula Nasal Cannula Oxygen Flow Rate 3 3 09/15/24 07:00 09/15/24 08:00 09/15/24 08:00 Temperature 98.6 F Pulse Rate 89 Pulse Rate [Pulse Oximeter] 81 81 Respiratory Rate 18 18 Blood Pressure Blood Pressure [Le ft Arm] 152/84 H Blood Pressure [Ri ght Upper Arm] Pulse Oximetry 94 Oxygen Delivery Me thod Nasal Cannula Oxygen Flow Rate 3 09/15/24 10:00 09/15/24 11:00 09/15/24 12:00 Temperature 97.1 F L Pulse Rate 85 Pulse Rate [Pulse Oximeter] 80 80 Respiratory Rate 16 16 Blood Pressure Blood Pressure [Le ft Arm] 139/85 Blood Pressure [Ri ght Upper Arm] Pulse Oximetry 92 Oxygen Delivery Me thod Nasal Cannula Oxygen Flow Rate 1 09/15/24 12:00 Temperature 97.6 F Pulse Rate Pulse Rate [Pulse Oximeter] 90 Respiratory Rate 18 Blood Pressure Blood Pressure [Le ft Arm] 129/80 Blood Pressure [Ri ght Upper Arm] Pulse Oximetry 92 Oxygen Delivery Me thod Nasal Cannula Oxygen Flow Rate 1 Labs Labs: Laboratory Results - last 24 hr 09/14/24 09/14/24 09/14/24 17:19 17:19 17:24 WBC 11.17 H RBC 5.57 Hgb 10.9 L Hct 37.2 MCV 67 L MCH 20 L MCHC 29 L RDW Coeff of Odin 19.2 H Plt Count 392 Neut % (Auto) 57.6 Lymph % (Auto) 30.1 [place] % (Auto) 10.5 Eos % (Auto) 1.0 Baso % (Auto) 0.5 Neut # (Auto) 6.40 Lymph # (Auto) 3.40 H [place] # (Auto) 1.20 H Eos # (Auto) 0.10 Baso # (Auto) 0.10 Abs Immat Gran (auto) 0.00 Imm/Tot Granulo (auto) 0.3 INR 1.05 APTT VBG pH 7.347 VBG pCO2 36 L VBG pO2 < 30.1 VBG HCO3 20 L Sodium 138 Potassium 4.0 Chloride 104 Carbon Dioxide 18 L Anion Gap 16 H BUN 18 Creatinine 1.9 H Estimated Creat Clear 47.34 Estimated GFR 41 Glucose 173 H Hemoglobin A1c Lactate 4.0 H Calcium 9.6 Magnesium 2.2 2.2 Total Bilirubin 1.4 Direct Bilirubin 0.2 AST 56 H ALT 89 H Alkaline Phosphatase 142 Troponin I C-Reactive Protein 4.1 H NT-Pro-B Natriuret Pep 3220 H Total Protein 8.6 H Albumin 4.7 Lipase 75 Procalcitonin 0.09 Urine Color Urine Appearance Urine pH Ur Specific [place] Urine Protein Urine Glucose (UA) Urine Ketones Urine Blood Urine Nitrite Urine Bilirubin Urine Urobilinogen Ur Leukocyte Esterase Urine RBC Urine WBC Ur Squamous Epith Cells Urine Bacteria Urine Mucus Lab Acknowledgement POC Troponin I 0.04 Blood Type Antibody Screen 09/14/24 09/14/24 09/14/24 17:45 18:52 20:16 WBC RBC Hgb Hct MCV MCH MCHC RDW Coeff of Od[place] Plt Count Neut % (Auto) Lymph % (Auto) [place] % (Auto) Eos % (Auto) Baso % (Auto) Neut # (Auto) Lymph # (Auto) [place] # (Auto) Eos # (Auto) Baso # (Auto) Abs Immat Gran (auto) Imm/Tot Granulo (auto) INR APTT 24 VBG pH VBG pCO2 VBG pO2 VBG HCO3 Sodium Potassium Chloride Carbon Dioxide Anion Gap BUN Creatinine Estimated Creat Clear Estimated GFR Glucose Hemoglobin A1c Lactate Calcium Magnesium Total Bilirubin Direct Bilirubin AST ALT Alkaline Phosphatase Troponin I C-Reactive Protein NT-Pro-B Natriuret Pep Total Protein Albumin Lipase Procalcitonin Urine Color Yellow Urine Appearance Clear Urine pH 5.5 Ur Specific [place] 1.010 Urine Protein 1+ A Urine Glucose (UA) Negative Urine Ketones 1+ A Urine Blood Negative Urine Nitrite Negative Urine Bilirubin Negative Urine Urobilinogen 0.2 Ur Leukocyte Esterase Negative Urine RBC 0-2 Urine WBC 0-2 Ur Squamous Epith Cells None Urine Bacteria None Urine Mucus Moderate A Lab Acknowledgement POC Troponin I Blood Type O Positive Antibody Screen NEGATIVE 09/14/24 09/15/24 09/15/24 22:04 01:34 06:26 WBC 11.35 H RBC 5.02 Hgb 9.7 L Hct 33.1 L MCV 66 L MCH 19 L MCHC 29 L RDW Coeff of Odin 18.4 H Plt Count 280 Neut % (Auto) 59.1 Lymph % (Auto) 27.9 [place] % (Auto) 10.1 Eos % (Auto) 2.1 Baso % (Auto) 0.4 Neut # (Auto) 6.70 Lymph # (Auto) 3.20 H [place] # (Auto) 1.10 H Eos # (Auto) 0.20 Baso # (Auto) 0.00 Abs Immat Gran (auto) 0.00 Imm/Tot Granulo (auto) 0.4 INR APTT 24 VBG pH VBG pCO2 VBG pO2 VBG HCO3 Sodium 137 Potassium 4.3 Chloride 107 Carbon Dioxide 20 Anion Gap 10 BUN 18 Creatinine 1.6 H Estimated Creat Clear 56.21 Estimated GFR 51 Glucose 107 Hemoglobin A1c 5.9 H Lactate 1.2 Calcium 8.8 Magnesium Total Bilirubin 1.0 Direct Bilirubin 0.2 AST 35 ALT 66 H Alkaline Phosphatase 125 Troponin I 0.08 H* C-Reactive Protein 4.2 H NT-Pro-B Natriuret Pep Total Protein 7.3 Albumin 4.0 Lipase Procalcitonin Urine Color Urine Appearance Urine pH Ur Specific [place] Urine Protein Urine Glucose (UA) Urine Ketones Urine Blood Urine Nitrite Urine Bilirubin Urine Urobilinogen Ur Leukocyte Esterase Urine RBC Urine WBC Ur Squamous Epith Cells Urine Bacteria Urine Mucus Lab Acknowledgement Test Added POC Troponin I Blood Type Antibody Screen 09/15/24 09/15/24 09/15/24 07:32 08:29 09:46 WBC RBC Hgb Hct MCV MCH MCHC RDW Coeff of Od[place] Plt Count Neut % (Auto) Lymph % (Auto) [place] % (Auto) Eos % (Auto) Baso % (Auto) Neut # (Auto) Lymph # (Auto) [place] # (Auto) Eos # (Auto) Baso # (Auto) Abs Immat Gran (auto) Imm/Tot Granulo (auto) INR APTT 122 H* VBG pH VBG pCO2 VBG pO2 VBG HCO3 Sodium Potassium Chloride Carbon Dioxide Anion Gap BUN Creatinine Estimated Creat Clear Estimated GFR Glucose Hemoglobin A1c Lactate Calcium Magnesium Total Bilirubin Direct Bilirubin AST ALT Alkaline Phosphatase Troponin I 0.07 H* C-Reactive Protein NT-Pro-B Natriuret Pep Total Protein Albumin Lipase Procalcitonin Urine Color Urine Appearance Urine pH Ur Specific [place] Urine Protein Urine Glucose (UA) Urine Ketones Urine Blood Urine Nitrite Urine Bilirubin Urine Urobilinogen Ur Leukocyte Esterase Urine RBC Urine WBC Ur Squamous Epith Cells Urine Bacteria Urine Mucus Lab Acknowledgement Test Added POC Troponin I Blood Type Antibody Screen 09/15/2024 EKG: normal sinus rhythm, 80 beats per minute, T-wave abnormality, consider anterior ischemia, prolonged QT, QTC 472 milliseconds. 09/15/2024 preliminary echo results: LVF normal, right ventricular enlargement, right atrial enlargement, mild to moderate tricuspid regurgitation, increased pulmonary pressure of max pg 63. Ordering Physician: Daquan Rivera M.D. Date of Service: 09/15/24 Procedure(s): US venous LE BI Accession Number(s): [id number] cc: Hudson Corbin M.D.; Daquan Rivera M.D.~ For Patients: As a result of the Century Cures Act, medical imaging exams and procedure reports are released immediately into your electronic medical record. You may view this report before your referring provider. If you have questions, please contact your health care provider. INDICATION: Pulmonary embolism TECHNIQUE: Ultrasound venous duplex bilateral lower extremity. Compression venous exam was performed using vo-scale, color Doppler, and spectral Doppler analysis. COMPARISON: None. FINDINGS: RIGHT: Deep veins: Eccentric thrombus throughout the popliteal vein extending to the mid posterior tibial and peroneal veins. These veins are partially compressible. Sonographic imaging demonstrates the right common femoral, deep femoral, superficial femoral veins to be fully compressible with normal color Doppler blood flow. Superficial veins: Greater saphenous vein is fully compressible. LEFT: Deep veins: Sonographic imaging demonstrates the left common femoral, deep femoral, superficial femoral, popliteal, posterior tibial and peroneal veins to be fully compressible with normal color Doppler blood flow. Superficial veins: Proximal greater saphenous vein is fully compressible. IMPRESSION: Nonocclusive thrombus extending from the right popliteal vein to mid posterior tibial and peroneal veins. Results communicated to Dereje by Dre on 09/15/24 at 8:56 a.m.. Dictated by Angie Erickson MD @ 09/15/2024 8:57:01 AM (Electronically Signed)
[2024-09-15 16:34] LABS: Partial Thromboplastin Time* 52 Seconds (23-33)
[2024-09-15] MEDS: HEPARIN 5,000 UNIT/0.5 ML INJ 3100 UNIT IVP (17:32)
--- NOTE | 2024-09-15 18:57 | PC.NURSE ---
End of Shift: Patient pleasant and cooperative. Afebrile. Denies pain. States SOB with walking to the bathroom but denies at rest. 1L NC to keep sats above 90%. Sats decrease to 87% on room air. Tele showing NSR. Heart rate increases to 120s with activity, MD aware. Tolerating regular diet with no nausea. Heparin drip per protocol.
[2024-09-15 23:59] LABS: Partial Thromboplastin Time* 75 Seconds (23-33)
[2024-09-16] VITALS (7 sets, daily range): BP systolic 111–130; BP diastolic 65–77; PULSE 72–87; RESP 16–22; TEMP 36.2–36.6; O2SAT 89–96
[2024-09-16] MEDS: HEPARIN 25,000 UNIT/500 ML BAG 37 UNIT IV (00:22)
[2024-09-16 05:31] LABS: Basophils Absolute Auto 0.04 K/uL (0.00-0.30); Basophils Percent Auto 0.4 % (0.0-3.0); Eosinophils Absolute Auto 0.25 K/uL (0.00-0.50); Eosinophils Percent Auto 2.3 % (0.0-7.0); Hematocrit 33.4 % (37.0-53.0); Immature Granulocytes Abs Auto 0.03 K/uL (0.00-0.30); Immature Granulocytes Pct Auto 0.3 %; Lymphocytes Absolute Auto 3.03 K/uL (0.90-2.90); Lymphocytes Percent Auto 27.7 % (20-44); Mean Corpuscular HGB Conc 30 gm/dL (32-36); Mean Corpuscular Hemoglobin 20 pg (26-34); Mean Corpuscular Volume 65 fL (80-100); Monocytes Percent Auto 11.6 % (0.0-11.0); Neutrophils Absolute Auto 6.31 K/uL (1.7-7.0); Neutrophils Percent Auto 57.7 % (42.0-72.0); Platelet Count* 300 K/uL (140-440); RDW Coefficient of Variation % 18.3 % (11.5-15.5); Red Blood Count 5.11 m/uL (4.30-5.90); White Blood Count* 10.93 K/uL (4.50-11.00)
[2024-09-16 05:34] LABS: Slide Review Reflex No
[2024-09-16 05:50] LABS: Chloride* 107 mmol/L (96-114); Sodium* 138 mmol/L (135-149)
[2024-09-16 05:53] LABS: Anion Gap 8 mEq/L (7-15); Blood Urea Nitrogen* 19 mg/dL (7-30); Carbon Dioxide* 23 mmol/L (20-32); Cholesterol* 163 mg/dL (90-199); Creatinine* 1.6 mg/dL (0.5-1.5); Est. Creatinine Clearance* 56.21; Estimated Glomerular Filt Rate 51 ml/min; Triglycerides* 104 mg/dL (40-149)
[2024-09-16 05:54] LABS: Glucose* 106 mg/dL (60-115); HDL Cholesterol* 32 mg/dL (>=40); LDL Cholesterol Calculated 110 mg/dL (<100)
[2024-09-16 05:55] LABS: Partial Thromboplastin Time* 77 Seconds (23-33)
[2024-09-16] MEDS: OMEPRAZOLE 20 MG CAPSULE DR PO (06:02)
--- NOTE | 2024-09-16 06:22 | PC.NURSE ---
Pt alert and oriented. Pt pleasant and cooperative. Pt had no complaints of pain. Pt has SOB with exertion. Pt?s VSS on 1-2 Liters oxygen. Pt is up independently. Pt is on a heparin drip; see EMAR. Drip rate did not need to be adjusted as PTT was within range-?Next PTT draw at 0530 on 09/17. Pt slept well throughout the night.?
[2024-09-16] MEDS: SODIUM CHLORIDE 0.9 % (FLUSH) 10 ML SYRINGE 5 ML IVF (09:06)
[2024-09-16] MEDS: APIXABAN 5 MG TABLET 10 MG PO (11:30)
--- NOTE | 2024-09-16 13:21 | P.DS_ITS ---
DS: Providers Provider Time Seen by Provider: 09:05 Date Seen: 09/16/24 Date of admission: 09/14/24 20:14 Primary care physician: Hudson Corbin MD Admitting Clinician: Daquan Rivera MD Attending Physician on discharge: Sumi Reyez MD Date of Discharge: 09/16/24 DS: Diagnosis Discharge Diagnosis (1) Pulmonary embolism: Status: Acute Problem details: Large clot burden with multiple bilateral pulmonary emboli. Right heart strain, hypoxia, tachycardia. ER physician discussed with trademark paralegal at [facility]. They recommended management with IV heparin and transfer if clinical deterioration. H/o DVT. - 09/15 R heart strain on ECHO, symptoms improving, vitals stable at rest, expected HR elevation with ambulation to BR. Keep on IV heparin overnight, repeat Hgb in am, will probably transition to DOAC tomorrow - 09/16 Stable overnight. HR increase and dyspnea with ambulation to BR improving. Started Eliquis, stopped heparin. D/c home. (2) Pulmonary nodules: Status: Acute Problem details: Chest CT on 09/15/2024 shows multiple pulmonary nodules less than 6 mm in size. Patient is a nonsmoker, no further workup needed (3) Prediabetes: Status: Acute Problem details: Elevated glucose on admission, hemoglobin A1c today is 5.9%. Recommended lifestyle changes and follow-up with primary care provider. (4) Hyperlipidemia: Status: Acute Problem details: Lifestyle modifications, f/u with PCP, recheck as outpatient in a year (5) Chronic kidney disease: Status: Suspected Problem details: Cr stable at 1.6, suspect CKD stage 3a, follow as outpatient (6) Anemia: Status: Acute Problem details: Present on admission. Stable. In at colonoscopy 09/05/2024 with sessile polyp 6 mm in the ascending colon removed by cold snare. EGD 3 years ago. Patient has history of GERD. Was started on omeprazole on admission. No evidence of active bleeding. Now on Eliquis. F/u with PCP. (7) Hepatic steatosis: Status: Chronic Problem details: Previously seen on imaging in 2021. AST and ALT mildly elevated on admission, improving, recommended lifestyle changes. DS: Summary Hospital Course Hospital Course: NOTE TO PCP: This is the second DVT, consider outpatient hypercoagulable panel or referral to hematology. Per H&P: Rhett Brown is a 54 year old male admitted to the hospital with onset 2 days ago of profound fatigue, dyspnea and generalized aching. 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 He reports this was fairly severe physical exertion and he was exhausted when he was done. Unfortunately he did not recover well and reported having generalized pains and profound dyspnea with ordinary activity the rest of the day. He had some stomach pain and tried to eat but that did not help. That has subsequently resolved. He did not have any leg pain. He does report that he has developed chest pain that comes when he coughs but otherwise no chest pain. In the emergency department he was found to have multiple bilateral pulmonary emboli with large clot burden and right heart strain with an RV to LV ratio of 1.3. He does have a previous history of a DVT perhaps 8 or 9 years ago. It was in his calf. He was treated with warfarin and then that was discontinued. That may or may not have been a provoked event. 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 No other personal or family history of thrombophilia. He does not smoke. He has not had any recent immobilization or significant injury. He has not had any prolonged travel. He takes no medications. No history of cancer. He had colonoscopy last week for screening purposes. One 6 mm pre cancerous polyp was removed by cold forceps. He has had no bleeding from that. No other history of bleeding problems. Right heart strain was identified lung with large clot burden on CT. Dr. Haines from the emergency department spoke with an trademark paralegal at [facility] on 09/14/2024. His PESI score is low risk so combination was for hospitalization and heparinization. Patient does have some anemia present on admission that has remained stable despite anticoagulation. Note further details above. He tolerated anticoagulation without problems and was transitioned over to oral anticoagulation with Eliquis today. Please see other details in diagnoses above. Patient is discharged in stable and improved condition. Time Spent with Patient Time attestation: Total time spent providing and/or coordinating discharge services: Today I spent 40 minutes seeing and discharging the patient, reviewing Expanse and EPIC notes/diagnostics/labs, discussing the care plan with our care team that includes social work, PT/OT, pharmacy, RT, fpc and documenting my impressions and plan in the medical record. Exam Narrative: Exam Narrative: General: No acute distress. Laying comfortably in the bed. Awake, alert, oriented x3. No pallor. No jaundice. Oropharynx: Clear. Mucous membranes moist. Cardiovascular: Regular rate and rhythm. No murmurs, gallops, or rubs. Respiratory: No respiratory distress. No increased work of breathing. Clear to auscultation bilaterally. No wheezes or crackles. Const: Vital Signs, click to edit/add: Vital Signs - 24 hr 09/15/24 13:45 09/15/24 13:52 09/15/24 15:00 Temperature 97.8 F Pulse Rate 90 Pulse Rate [Bilate ral Radial] Pulse Rate [Pulse Oximeter] 126 H 103 H Respiratory Rate 22 Blood Pressure [Le ft Arm] 151/88 H Pulse Oximetry 91 Oxygen Delivery Me thod Nasal Cannula Oxygen Flow Rate 1 09/15/24 15:00 09/15/24 15:00 09/15/24 19:25 Temperature 97.9 F 98.3 F Pulse Rate Pulse Rate [Bilate ral Radial] Pulse Rate [Pulse Oximeter] 93 93 98 Respiratory Rate 20 20 20 Blood Pressure [Le ft Arm] 147/93 H 137/84 Pulse Oximetry 93 94 Oxygen Delivery Me thod Nasal Cannula Nasal Cannula Oxygen Flow Rate 1 1 09/15/24 20:16 09/15/24 23:08 09/15/24 23:32 Temperature 97.8 F Pulse Rate 85 Pulse Rate [Bilate ral Radial] Pulse Rate [Pulse Oximeter] 85 Respiratory Rate 20 22 Blood Pressure [Le ft Arm] 129/79 Pulse Oximetry 96 Oxygen Delivery Me thod Nasal Cannula Oxygen Flow Rate 1 09/15/24 23:35 09/16/24 02:13 09/16/24 02:16 Temperature Pulse Rate Pulse Rate [Bilate ral Radial] Pulse Rate [Pulse Oximeter] Respiratory Rate 22 22 Blood Pressure [Le ft Arm] Pulse Oximetry 96 89 93 Oxygen Delivery Me thod Nasal Cannula Nasal Cannula Nasal Cannula Oxygen Flow Rate 1 1 2 09/16/24 02:19 09/16/24 06:56 09/16/24 08:17 Temperature 97.9 F Pulse Rate 72 Pulse Rate [Bilate ral Radial] Pulse Rate [Pulse Oximeter] 87 Respiratory Rate 22 18 Blood Pressure [Le ft Arm] 121/77 Pulse Oximetry 95 96 Oxygen Delivery Me thod Nasal Cannula Nasal Cannula Oxygen Flow Rate 2 2 09/16/24 08:17 09/16/24 08:19 09/16/24 11:24 Temperature 97.1 F L 97.3 F L Pulse Rate Pulse Rate [Bilate ral Radial] 86 Pulse Rate [Pulse Oximeter] 77 77 Respiratory Rate 18 18 16 Blood Pressure [Le ft Arm] 111/65 130/75 Pulse Oximetry 95 95 Oxygen Delivery Me thod Nasal Cannula Room Air Oxygen Flow Rate 2 DS: Data Data Completed and Pending Completed studies during hospitalization: 09/14/2024 EKG: Sinus tachycardia with first-degree AV block, 104 beats per minute. Nonspecific ST and T-wave abnormality. 09/15/2024 EKG: Normal sinus rhythm, 80 beats per minute, T-wave abnormality, consider anterior ischemia, prolonged QT. 09/15/2024 echocardiogram: Normal LV size, borderline wall thickness, normal global systolic function, calculated EF of 67%. Right ventricular cavity size is moderately enlarged, global systolic RV function is mildly reduced. Moderately increased estimated pulmonary pressures by tricuspid regurgitation velocity and right atrial pressure (66 mm Hg plus RAP estimated 0 - 5 mm Hg). Lara's sign is present. No significant valve disease detected. No perica rdial effusion. Ordering Physician: Ericka Haines M.D. Date of Service: 09/14/24 Procedure(s): CT abdomen pelvis w con Accession Number(s): [id number] cc: Hudson Corbin M.D.; Ericka Haines M.D.~ For Patients: As a result of the Century Cures Act, medical imaging exams and procedure reports are released immediately into your electronic medical record. You may view this report before your referring provider. If you have questions, please contact your health care provider. INDICATION: Weak, shortness of breath, pale. TECHNIQUE: CT abdomen and pelvis acquired with 118 cc of Omnipaque 350 IV contrast. COMPARISON: Chest CT from earlier the same day. FINDINGS: Lower chest: Dictated separately. Liver: Unremarkable. Normal in size and attenuation. No suspicious masses. Gallbladder and bile ducts: Status post cholecystectomy. No abnormal biliary ductal dilatation. Pancreas: Unremarkable. No mass or inflammation. Spleen: Unremarkable. Normal in size. No masses. Adrenal glands: Unremarkable. No nodules. Kidneys: Unremarkable. No suspicious masses, stones, or hydronephrosis. GI tract: Small hiatal hernia. No obstruction. Normal appendix. Vasculature: Abdominal aorta is normal in caliber. Mesenteric arteries are patent. Heterogeneous and prominent appearance of the bilateral common and external iliac arteries, [id number]. Lymph nodes: No lymphadenopathy. Peritoneum/Abdominal Wall: Tiny fat-containing umbilical hernia. No free air or significant free fluid. Pelvis: Mild prostatomegaly. Prominent bilateral seminal vesicles. Bones: Unremarkable for age. IMPRESSION: 1. No acute findings within the abdomen and pelvis. 2. Heterogeneous and prominent appearance of the bilateral common and external iliac arteries, [id number]-right. Given the patient`s known pulmonary emboli, difficult to entirely exclude underlying deep venous thrombosis versus mixing artifact. Recommend dedicated DVT ultrasound for further evaluation. Please note that all CT scans at this facility use dose modulation, iterative reconstruction, and/or weight-based dosing when appropriate to reduce radiation dose to as low as reasonably achievable. Dictated by Ilir Contreras MD @ 09/14/2024 6:58:35 PM (Electronically Signed) Ordering Physician: Ericka Haines M.D. Date of Service: 09/14/24 Procedure(s): CT angio chest PE protocol Accession Number(s): [id number] cc: Hudson Corbin M.D.; Ericka Haines M.D.~ For Patients: As a result of the Century Cures Act, medical imaging exams and procedure reports are released immediately into your electronic medical record. You may view this report before your referring provider. If you have questions, please contact your health care provider. INDICATION: Weak shortness of breath TECHNIQUE: CT chest was acquired with 118 cc Omnipaque 350 IV contrast. Coronal and MIP reconstructions were performed. COMPARISON: None. FINDINGS: Lungs and pleura: Scattered few smaller nodules larger nodule measures 5 millimeters right lower lobe 4/152 for example. Heart and vasculature: Heart size is normal. Thoracic aorta and pulmonary artery are normal in caliber. Pulmonary extensive bilateral emboli in the main pulmonary arteries bilateral upper lower lobe right interlobar arteries. RV LV ratio measures approximately 1.3 reflecting right heart strain. Small pericardial effusion. Consolidation medial right middle lobe. Lymph nodes/mediastinum: No mediastinal, hilar, or axillary adenopathy. Chest wall: No masses. Upper abdomen: Cholecystectomy. Small hiatal hernia. Bones: Unremarkable for age. IMPRESSION: 1. Extensive bilateral pulmonary emboli in both main pulmonary arteries upper and lower lobe arteries. Large clot burden. Findings of right Heart strain with RV/ LV ratio measuring 1.3 centimeters. Small pericardial effusion. 2. Consolidation medial right middle lobe. 3. Scattered small pulmonary nodules measuring up to 5 millimeters follow-up per Fleischner society guidelines. Results called to Dr. Haines on 09/14/24 at 6:44pm. FLEISCHNER SOCIETY GUIDELINES - SOLID NODULES: SINGLE LOW RISK - nodule less than 6 mm: No routine follow-up. - nodule 6-8 mm: CT at 6-12 months, then consider CT at 18-24 months. - nodule greater than 8 mm: Consider CT at 3 months, PET/CT or tissue sampling. SINGLE HIGH RISK - nodule less than 6 mm: Optional CT at 12 months. - nodule 6-8 mm: CT at 6-12 months, then CT at 18-24 months. - nodule greater than 8 mm: Consider CT at 3 months, PET/CT or tissue sampling. MULTIPLE LOW RISK - nodule less than 6 mm: No routine follow-up. - nodule 6-8 mm: CT at 3-6 months, then consider CT at 18-24 months. - nodule greater than 8 mm: CT at 3-6 months, then consider CT at 18-24 months. MULTIPLE HIGH RISK - nodule less than 6 mm: Optional CT at 12 months. - nodule 6-8 mm: CT at 3-6 months, then at 18-24 months. - nodule greater than 8 mm: CT at 3-6 months, then at 18-24 months. Please note that all CT scans at this facility use dose modulation, iterative reconstruction, and/or weight-based dosing when appropriate to reduce radiation dose to as low as reasonably achievable. Dictated by Deepti Shelton MD @ 09/14/2024 6:45:03 PM (Electronically Signed) Ordering Physician: Daquan Rivera M.D. Date of Service: 09/15/24 Procedure(s): US venous LE BI Accession Number(s): [id number] cc: Hudson Corbin M.D.; Daquan Rivera M.D.~ For Patients: As a result of the Century Cures Act, medical imaging exams and procedure reports are released immediately into your electronic medical record. You may view this report before your referring provider. If you have questions, please contact your health care provider. INDICATION: Pulmonary embolism TECHNIQUE: Ultrasound venous duplex bilateral lower extremity. Compression venous exam was performed using vo-scale, color Doppler, and spectral Doppler analysis. COMPARISON: None. FINDINGS: RIGHT: Deep veins: Eccentric thrombus throughout the popliteal vein extending to the mid posterior tibial and peroneal veins. These veins are partially compressible. Sonographic imaging demonstrates the right common femoral, deep femoral, superficial femoral veins to be fully compressible with normal color Doppler blood flow. Superficial veins: Greater saphenous vein is fully compressible. LEFT: Deep veins: Sonographic imaging demonstrates the left common femoral, deep femoral, superficial femoral, popliteal, posterior tibial and peroneal veins to be fully compressible with normal color Doppler blood flow. Superficial veins: Proximal greater saphenous vein is fully compressible. IMPRESSION: Nonocclusive thrombus extending from the right popliteal vein to mid posterior tibial and peroneal veins. Results communicated to [place] by Dre on 09/15/24 at 8:56 a.m.. Dictated by Angie Erickson MD @ 09/15/2024 8:57:01 AM (Electronically Signed) Labs on day of discharge: Labs from last 24 hours 09/16/24 09/15/24 09/15/24 05:25 23:37 16:11 WBC 10.93 RBC 5.11 Hgb 10.0 L Hct 33.4 L MCV 65 L MCH 20 L MCHC 30 L RDW Coeff of Odin 18.3 H Plt Count 300 Neut % (Auto) 57.7 Lymph % (Auto) 27.7 [place] % (Auto) 11.6 H Eos % (Auto) 2.3 Baso % (Auto) 0.4 Neut # (Auto) 6.31 Lymph # (Auto) 3.03 H [place] # (Auto) 1.30 H Eos # (Auto) 0.25 Baso # (Auto) 0.04 Abs Immat Gran (auto) 0.03 Imm/Tot Granulo (auto) 0.3 APTT 77 H 75 H 52 H Sodium 138 Potassium 4.0 Chloride 107 Carbon Dioxide 23 Anion Gap 8 BUN 19 Creatinine 1.6 H Estimated Creat Clear 56.21 Estimated GFR 51 Glucose 106 Calcium 9.0 Triglycerides 104 Cholesterol 163 LDL Cholesterol, Calc 110 H HDL Cholesterol 32 L Preliminary micro results at discharge 09/14/24 17:57 Blood Culture - Preliminary Blood NO GROWTH AFTER 24 HOURS 09/14/24 17:45 Blood Culture - Preliminary Blood NO GROWTH AFTER 24 HOURS Discharge Plan Discharge Disposition: Home, Self-Care Date of Admission: 09/14/24 20:14 Attending Provider on Discharge: Sumi Reyez Primary Care Provider: Hudson Corbin Condition: Stable Anticipated Discharge Date/Time: 09/16/24 13:40 Discharge Medications: New Eliquis DVT-PE Treat 30D Start 5 mg (74 tabs) tablets,dose pack See Rx Instructions .ROUTE .COMPLEX Qty: 74 0RF Rx Instructions: orally per package directions omeprazole 20 mg Capsule,Delayed Release(Dr/Ec) 20 mg PO DAILY@0700 Qty: 30 0RF Discharge Orders: Discharge Order (Routine); Ordered 09/16/24 Ordered By: Sumi Reyez Activity Level: Activity as Tolerated and Light activity Discharge Diet: Regular Follow Up Appointments: Hudson Corbin MD [Primary Care Provider, Family Practice] Referral Note: 5-7 days Forms: [facility] [employer] Info Instructions
--- NOTE | 2024-09-16 14:40 | PC.NURSE ---
discharge./ pt is alert x4. he is very pleasant and cooperative. no pain. SOB with walking to the bathroom but denies at rest. he was placed to RA this am and SAo2 has been above 90%. Tele showing NSR. Heart rate does increase to 110's with activity, . he is eating, drinking, and voiding. Heparin drip was d/c. went over discharge packet. went over medications, appointment instruction, and education. pt did not signed personal belonging sheet, but he left with all belongings and paperwork. he walked out with his .
== END 2024-09-16 14:35 | disposition home or self-care (01) | DRG 134 ==
LOC: ED 19:08 → MEDSURG 19:40
PROVIDERS: Family Medicine; Admitting Provider Family Medicine; Emergency Provider Emergency Medicine; PCP Family Medicine; Visit Provider Family Medicine
DX: I26.94 Multiple subsegmental thrombotic pulmonary emboli without acute cor pulmonale (principal); I82.431 Acute embolism and thrombosis of right popliteal vein; I82.441 Acute embolism and thrombosis of right tibial vein; I82.451 Acute embolism and thrombosis of right peroneal vein; I51.89 Other ill-defined heart diseases; Z86.718 Personal history of other venous thrombosis and embolism; D64.9 Anemia, unspecified; R91.8 Other nonspecific abnormal finding of lung field; K21.9 Gastro-esophageal reflux disease without esophagitis; R73.03 Prediabetes; K76.0 Fatty (change of) liver, not elsewhere classified; N18.31 Chronic kidney disease, stage 3a; I44.0 Atrioventricular block, first degree
CPT/HCPCS: 36415; 71275; 74177; 80048; 80061; 80076; 81001; 82803; 83036; 83605; 83690; 83735; 83880; 84145; 84484; 85025; 85610; 85730; 86140; 86850; 86900; 86901; 87040; 93005; 93306; 93970; 94761; 99284; 99285; A9270; J1644; J7030; Q9967

== ENCOUNTER 2024-09-19 15:54 | Outpatient (CLI) | payer BC, SELFPAY | END 2024-09-19 15:55 | disposition home or self-care (01) | PROVIDERS: PCP Family Medicine; Visit Provider Family Medicine | DX: E78.5 Hyperlipidemia, unspecified (principal); N18.9 Chronic kidney disease, unspecified; I26.92 Saddle embolus of pulmonary artery without acute cor pulmonale; D64.9 Anemia, unspecified; Z13.21 Encounter for screening for nutritional disorder | CPT/HCPCS: 80053; 82607; 82728; 82784; 83540; 83550; 86231; 86258; 86364 ==

== ENCOUNTER 2025-03-19 20:16 | Emergency (ER) | payer BC, SELFPAY | END 2025-03-19 20:26 | disposition left against medical advice (07) | PROVIDERS: Emergency Provider Family Medicine; PCP Family Medicine | DX: Z53.21 Procedure and treatment not carried out due to patient leaving prior to being seen by health care provider (principal) ==